=== PATIENT | male | born 1945 | race Caucasian/White ===

== ENCOUNTER 2024-07-03 20:11 | Emergency (ER) | payer MEDICARE, OTHER, SELFPAY ==
[2024-07-03 20:12] VITALS: BP 117/66
[2024-07-03 20:35] LABS: % Basophils 0.7 % (0-2); % Eosinophils 4.9 % (0-6); % Immature Granulocytes 1.3 % (0-0.5); % Lymphocytes 32.6 % (20.5-51.1); % Neutrophils 49.5 % (42.2-75.2); Absolute Eosinophils 0.3 10^3/uL (0-0.7); Absolute Immature Granulocytes 0.1 10^3/uL (0-0.05); Absolute Monocytes 0.7 10^3/uL (0.1-0.6); Hematocrit 40.9 % (39.0-52.0); Hemoglobin 13.4 g/dL (13.0-18.0); Mean Corp Hgb Conc. 32.8 g/dL (33.0-37.0); Mean Corpuscular Hgb 31.2 pg (27.0-31.0); Mean Corpuscular Volume 95.1 fL (80.0-94.0); Mean Platelet Volume 10.1 fL (7.4-10.4); Nucleated Red Blood Cells % 0 % (-); Platelet Count 166 10^3/uL (130-400); Red Cell Dist. Width 15.5 % (11.5-14.5); White Blood Cell Count 6.1 10^3/uL (4.8-10.8)
[2024-07-03 20:54] LABS: ALT (SGPT) 21 U/L (0-50); AST (SGOT) 34 U/L (17-59); Albumin 4.2 g/dl (3.5-5.0); Alkaline Phosphatase 76 U/L (38-126); Blood Urea Nitrogen 14 mg/dl (9-20); Carbon Dioxide 30 mmol/L (22-30); Chloride 103 mmol/L (98-107); Glucose 88 mg/dl (70-99); Potassium 5.3 mmol/L (3.5-5.1); Sodium 144 mmol/L (135-145); Total Bilirubin 0.3 mg/dl (0.2-1.3); Total Protein 7.7 g/dl (6.3-8.2); eGFR > 60.00
--- NOTE | 2024-07-03 21:37 | ED.GENMED ---
History of Present Illness
General
Chief Complaint: Male Genito-Urinary Symptoms
Source: patient and spouse
Exam Limitations: dementia
Time Seen by Provider: 07/03/24 21:27
History of Present Illness
History of Present Illness:
This is a 79 year old male that is brought in by his with c/o possible UTI. states that he has had a change in his behavior. Stats that this has happened in the past when he has a urinary tract infection. States that he gets more confused
and his anxiety goes up. State that as it advances he can't walk. States that she wanted to get him checked before this happened. Denies any fever, chills, chest pain, SOB, abd pain, nausea, vomiting, diarrhea, headache, dizziness, urinary burning.
Past History
Past History
ED Past Medical History: CAD, Cancer (Prostate CA), [place] and Other (Dmentia, )
ED Past Surgical History: Cardiac (Stents), Tonsilectomy, Urological (Prostatectomy) and Other (Skin graft)
Social History
Tobacco: Former smoker
Alcohol: None
Personal:
Living: care home ([facility])
Review of Systems
Review of Systems
Other source history: family ( and patient)
All Other Systems: ROS reviewed and negative except as documented in HPI and ROS
Constitutional: Reports no symptoms; Denies fever or chills
EENT: Reports no symptoms
Respiratory: Reports no symptoms; Denies cough or trouble breathing
Cardiac: Reports no symptoms; Denies chest pain
ABD/GI: Reports no symptoms; Denies abdominal pain, nausea, vomiting or diarrhea
: Reports no symptoms; Denies dysuria, frequency or urgency
Musculoskeletal: Reports no symptoms
Skin: Reports no symptoms
Neurological: Reports no symptoms; Denies dizzy or headache
Psychiatric: Reports no symptoms
Phy Exam
General Physical Exam
General Presentation: well appearing and no apparent distress
General age: appears stated age
General Skin: warm and dry
General Habitus: elderly
General Mental: usual mental status
General Hydration: appears well hydrated
ENT Exam
ENT Exam: TM's normal, pharynx normal and neck supple
Eye Exam
Eye Exam: EOMI
Cardiovascular Exam
Cardiovascular Exam: regular rate/rhythm, no murmur and normal peripheral pulses
Pulmonary Exam
Pulmonary Exam: lungs clear, no respiratory distress, no rales, chest non tender, no crackles, no rhonchi, no wheezing and no cough
Gastrointestinal Exam
Gastrointestinal Exam: normal bowel sounds, non tender, soft, no organomegaly, no pulsatile mass and non distended
Musculoskeletal Exam
Musculoskeletal Exam: full ROM and edema (Slight nonpitting lower leg edema)
Skin Exam
Skin Exam: normal color, warm/dry, no rash and no petechia
Psychiatric Exam
Psychiatric Exam: normal mood/affect
Course
Orders/Labs/Results
Orders:
Orders
07/03/24 20:27
Complete Blood Count/With Diff Urgent
Comprehensive Metabolic Panel Urgent
07/03/24 21:37
0.9% Sodium Chloride 1000 ml [Nss] 1,000 ml IV BOLUS
07/03/24 22:00
Urinalysis Reflex To Culture Urgent
Date Specimen was Collected: 07/03/24
Time Specimen was Collected: 21:38
Urine Microscopic Reflex Cult Urgent
Urine Culture Urgent
RHONDA Source: U
Specimen Description:
Date Specimen was Collected: 07/03/24
Time Specimen was Collected: 21:38
07/03/24 23:25
CefTRIAXone [Rocephin] 1,000 mg IV NOW STA
Abnormal Lab Results
07/03/24 07/03/24
20:27 22:00
RBC 4.30 L 10^6/uL
(4.70-6.10)
MCV 95.1 H fL
(80.0-94.0)
MCH 31.2 H pg
(27.0-31.0)
MCHC 32.8 L g/dL
(33.0-37.0)
RDW 15.5 H %
(11.5-14.5)
Abs Immat Gran (auto) 0.1 H 10^3/uL
(0-0.05)
Absolute Monos (auto) 0.7 H 10^3/uL
(0.1-0.6)
Immature Gran % 1.3 H %
(0-0.5)
Monocytes % 11.0 H %
(1.7-9.3)
Potassium 5.3 H mmol/L
(3.5-5.1)
Leukocyte Esterase Rfl Trace A
(Negative)
Urine WBC (Reflex) 30-40 A /HPF
(0-5)
Urine Bacteria (Reflex) Few A
(Negative)
07/03/24 20:27
07/03/24 20:27
Anemia, Hyperkalemia
Vital Signs
Initial and Last Documented VS:
Initial Vital Signs
Temp Pulse Resp BP Pulse Ox
98.5 F 82 18 117/66 99
07/03/24 20:12 07/03/24 20:12 07/03/24 20:12 07/03/24 20:12 07/03/24 20:12
Last Documented Vital Signs
Temp Pulse Resp BP Pulse Ox
98.5 F 82 18 117/66 99
07/03/24 20:12 07/03/24 20:12 07/03/24 20:12 07/03/24 20:12 07/03/24 20:12
MDM/Problems Addressed
Differential Diagnosis Includes:
UTI, change in mental status
MDM/Problems Addressed:
This is a79 year old male that is brought in by his with c/o possible UTI.
Will check labs and get urine. Will give IV fluids.
Back into see patient and . Explained that the patient does have a UTI. Will give IV Rocephin here and place on antibiotics for home. Patient to return with any concerns.
Chronic conditions affecting care:
Dementia
Acute Exacerbation and/or Progression of Chronic Illness:
Dementia
*Pulse Oximetry
Patient hypoxic: no
*EKG
Interpreted by ED Provider?: NA
Rate: EKG- N/A
*Technology Consultant Interpretation
Rate: Technology Consultant- N/A
*Critical Care Note
Total Time (30-74mins, 75-104mins- exclusive of procedures): Not Applicable
ED Attending Note
-
Portions of this chart may have been created with voice recognition software.� Occasional wrong word or��sound alike� substitutions may have occurred due to the inherent limitations of voice recognition software.
Discharge Plan
Departure
Patient Disposition: Home (Routine Discharge)
Date of Disposition: 07/03/24
Time of Disposition: 23:26
Patient with high blood pressure during this ER visit?: No
Condition: Good
Covid-19: Not Applicable
Discharge Problem:
Acute UTI (urinary tract infection)
Instructions: Urinary Tract Infection, Adult ED
Prescriptions:
New
cefdinir 300 mg capsule
300 mg PO BID Qty: 14 0RF
No Action
atorvastatin 40 MG tablet
40 mg PO QPM
sennosides 8.6 MG tablet
8.6 mg PO BID
polyethylene glycol 3350 17 GM powder in packet
17 gm PO DAILY AT 0700
atenolol 25 MG tablet
25 mg PO DAILY
clopidogrel [Plavix] 75 MG tablet
1 tab PO DAILY AT 0700
divalproex 125 MG tablet,delayed release (DR/EC)
3 tab PO Q12H
docusate sodium 100 MG capsule
100 mg PO BID
mirtazapine [Remeron] 15 MG tablet
15 mg PO DAILY
memantine 10 MG tablet
10 mg PO BID
psyllium husk [Konsyl Sugar-Free] 6 GM powder in packet
6 gm PO BID
Referrals:
Vy Christensen DO [Family Provider] - Follow up in 5-7 days
Activity Restrictions/Additional Instructions:
As discussed, your blood work shows some anemia. You do have a urinary tract infection. You have been given IV antibiotics here and a prescription will be sent back with you for the care home. Please increase your water intake to 8-8oz glasses
daily. Follow up with the family doctor for recheck. IF YOU HAVE ANY FEVER, INCREASED OR CHANGING MENTAL STATUS OR YOU HAVE ANY OTHER CONCERNS PLEASE RETURN TO THE EMERGENCY ROOM
Interventions
Interventions:
*General Assessment Last Done: 07/03/24 21:38
ED- Fall Risk Assessment Last Done: 07/03/24 21:38
ED-Male Genitourinary Assessment Last Done: 07/03/24 21:38
Discharge Date and Time
Print Language: GUINEAN
[2024-07-03] MEDS: NSS 1000 IV (22:01)
[2024-07-03 22:21] LABS: Urine Albumin Negative (Neg - Trace); Urine Bilirubin Negative (Negative); Urine Character Clear (Clear); Urine Color Yellow; Urine Glucose Negative (Negative); Urine Ketone Negative (Negative); Urine Leukocyte Trace (Negative); Urine Nitrite Negative (Negative); Urine Occult Blood Negative (Negative); Urine Urobilinogen Negative (Neg - 1+)
[2024-07-03 22:27] LABS: Urine Red Blood Cell 0-2 /HPF (0-2)
[2024-07-03 22:28] LABS: Urine Bacteria Few (Negative); Urine White Cell 30-40 /HPF (0-5)
[2024-07-03] MEDS: ROCEPHIN 1000 MG IV (23:32)
[2024-07-04 00:09] VITALS: BP 119/70
== END 2024-07-04 00:17 | disposition home or self-care (01) ==
LOC: EMR 20:11
PROVIDERS: Clinical Nurse Specialist Family Health; Emergency Medicine; EMERGENCY PHYSICIAN Emergency Medicine; FAMILY PHYSICIAN Family Medicine
DX: N39.0 Urinary tract infection, site not specified (principal); F03.94 Unspecified dementia, unspecified severity, with anxiety; I25.10 Atherosclerotic heart disease of native coronary artery without angina pectoris; Z95.5 Presence of coronary angioplasty implant and graft; Z85.46 Personal history of malignant neoplasm of prostate; Z87.891 Personal history of nicotine dependence; Z79.02 Long term (current) use of antithrombotics/antiplatelets; Z90.79 Acquired absence of other genital organ(s)
CPT/HCPCS: 99284; 96374; 96361; 80053; 81003; 81015; 85025; 87086

== ENCOUNTER 2024-09-20 14:24 | Emergency (ER) | payer MEDICARE, OTHER, SELFPAY ==
[2024-09-20 14:42] VITALS: BP 90/57
[2024-09-20 15:12] LABS: % Basophils 0.3 % (0-2); % Eosinophils 4.7 % (0-6); % Immature Granulocytes 1.3 % (0-0.5); % Lymphocytes 26.6 % (20.5-51.1); % Monocytes 9.7 % (1.7-9.3); % Neutrophils 57.4 % (42.2-75.2); Absolute Eosinophils 0.3 10^3/uL (0-0.7); Absolute Immature Granulocytes 0.1 10^3/uL (0-0.05); Absolute Lymphocytes 1.8 10^3/uL (1.2-3.4); Absolute Monocytes 0.7 10^3/uL (0.1-0.6); Absolute Neutrophils 3.9 10^3/uL (1.4-6.5); Hematocrit 42.3 % (39.0-52.0); Hemoglobin 13.7 g/dL (13.0-18.0); Mean Corp Hgb Conc. 32.4 g/dL (33.0-37.0); Mean Corpuscular Hgb 30.2 pg (27.0-31.0); Mean Corpuscular Volume 93.2 fL (80.0-94.0); Mean Platelet Volume 10.2 fL (7.4-10.4); Nucleated Red Blood Cells % 0 % (-); Platelet Count 195 10^3/uL (130-400); Red Blood Cell Count 4.54 10^6/uL (4.70-6.10); Red Cell Dist. Width 13.8 % (11.5-14.5); White Blood Cell Count 6.8 10^3/uL (4.8-10.8)
[2024-09-20 15:29] LABS: ALT (SGPT) 14 U/L (0-50); AST (SGOT) 50 U/L (17-59); Albumin 3.3 g/dl (3.5-5.0); Alkaline Phosphatase 99 U/L (38-126); Blood Urea Nitrogen 12 mg/dl (9-20); Calcium 8.7 mg/dl (8.4-10.2); Carbon Dioxide 31 mmol/L (22-30); Chloride 103 mmol/L (98-107); Glucose 103 mg/dl (70-99); Potassium 4.7 mmol/L (3.5-5.1); Sodium 139 mmol/L (135-145); Total Bilirubin 0.4 mg/dl (0.2-1.3); Total Protein 6.8 g/dl (6.3-8.2); eGFR > 60.00
--- NOTE | 2024-09-20 16:39 | ED.GENMED ---
History of Present Illness
General
Chief Complaint: Weakness
Time Seen by Provider: 09/20/24 16:26
History of Present Illness
History of Present Illness:
79-year-old male history of dementia, Parkinson's, CAD, hypertension, multiple lumbar compression fractures presenting with low back pain. Family at bedside states that patient was complaining of low back pain, was having difficulty sitting up
straight secondary to pain this afternoon prompting ED arrival. Patient denies any low back pain now. Patient denies numbness, weakness or tingling. Patient is incontinent at baseline. No fevers. Family deny any recent falls or trauma.
Past History
Past History
ED Past Medical History: CAD, Cancer (Prostate CA), [place] and Other (Dmentia, )
ED Past Surgical History: Cardiac (Stents), Tonsilectomy, Urological (Prostatectomy) and Other (Skin graft)
Social History
Tobacco: Former smoker
Alcohol: None
Personal:
Living: jail ([facility])
Phy Exam
Physical Exam
Physical Exam:
General: Alert, no acute distress
Head: NCAT
Eyes: clear conjunctiva
Neck: supple
Cardiac: regular rate and rhythm, no murmur
Lungs: clear to auscultation bilaterally. No wheezes, rales, or rhonchi. Speaking full unlabored sentences. No respiratory distress.
Abdomen: soft, nondistended nontender. No rebound or guarding. No CVA tenderness bilaterally
MSK: no lower extremity edema bilaterally. No deformity. No midline cervical/thoracic/lumbar tenderness to palpation. No paraspinal tenderness to palpation
Skin: warm, dry
Neuro: Alert and oriented x2, baseline. 5 out of 5 strength bilateral hip/knee/ankle flexion extension. Sensation intact throughout bilateral lower extremities
Course
Orders/Labs/Results
Orders:
Orders
09/20/24 14:56
CMP [Comprehensive Metabolic Panel] Urgent
Complete Blood Count/With Diff Urgent
Abnormal Lab Results
09/20/24
14:56
RBC 4.54 L 10^6/uL
(4.70-6.10)
MCHC 32.4 L g/dL
(33.0-37.0)
Abs Immat Gran (auto) 0.1 H 10^3/uL
(0-0.05)
Absolute Monos (auto) 0.7 H 10^3/uL
(0.1-0.6)
Immature Gran % 1.3 H %
(0-0.5)
Monocytes % 9.7 H %
(1.7-9.3)
Carbon Dioxide 31 H mmol/L
(22-30)
Glucose 103 H mg/dl
(70-99)
Albumin 3.3 L g/dl
(3.5-5.0)
09/20/24 14:56
09/20/24 14:56
Vital Signs
Initial and Last Documented VS:
Initial Vital Signs
Temp Pulse Resp BP Pulse Ox
98.0 F 74 18 90/57 98
09/20/24 14:42 09/20/24 14:42 09/20/24 14:42 09/20/24 14:42 09/20/24 14:42
Last Documented Vital Signs
Temp Pulse Resp BP Pulse Ox
98.0 F 65 14 108/69 98
09/20/24 14:42 09/20/24 16:48 09/20/24 16:48 09/20/24 16:48 09/20/24 16:48
MDM/Problems Addressed
MDM/Problems Addressed:
79-year-old male history of Parkinson's, dementia, CAD, hypertension, multiple lumbar compression fractures presenting with low back pain. No recent falls or trauma. Neurologically intact. No midline tenderness to palpation. Pt denies any pain
currently. Family states pt was recently evaluated at [facility], diagnosed with multiple old lumbar compression fractures. No new falls since imaging. Offered repeat imaging to rule out new compression fracture. Family declines, requesting discharge
home. Labs reviewed, unremarkable. Stable for discharge home with PCP follow-up. Will give lidocaine patch prescription
*Critical Care Note
Total Time (30-74mins, 75-104mins- exclusive of procedures): Not Applicable
ED Attending Note
-
Portions of this chart may have been created with voice recognition software.� Occasional wrong word or��sound alike� substitutions may have occurred due to the inherent limitations of voice recognition software.
Discharge Plan
Departure
Patient Disposition: Home (Routine Discharge)
Date of Disposition: 09/20/24
Time of Disposition: 16:43
Patient with high blood pressure during this ER visit?: No
Discharge Problem:
Low back pain
Prescriptions:
New
lidocaine 5 % adhesive patch,medicated
1 patch topical .every 12 hours Qty: 30 0RF
No Action
atorvastatin 40 MG tablet
40 mg PO QPM
sennosides 8.6 MG tablet
8.6 mg PO BID
polyethylene glycol 3350 17 GM powder in packet
17 gm PO DAILY AT 0700
atenolol 25 MG tablet
25 mg PO DAILY
clopidogrel [Plavix] 75 MG tablet
1 tab PO DAILY AT 0700
divalproex 125 MG tablet,delayed release (DR/EC)
3 tab PO Q12H
docusate sodium 100 MG capsule
100 mg PO BID
mirtazapine [Remeron] 15 MG tablet
15 mg PO DAILY
memantine 10 MG tablet
10 mg PO BID
psyllium husk [Konsyl Sugar-Free] 6 GM powder in packet
6 gm PO BID
cefdinir 300 mg capsule
300 mg PO BID Qty: 14 0RF
Activity Restrictions/Additional Instructions:
Take Tylenol 975mg every 6 hours as needed for pain
Use lidocaine patch, change every 12 hours
Follow up with primary care doctor in 1-2 days
Return to the emergency department for numbness, weakness, tingling or new/worsening symptoms
Interventions
Interventions:
*Risk Screen - Suicide Last Done: 09/20/24 16:47
*General Assessment Last Done: 09/20/24 16:47
*Neglect/Abuse Screening Last Done: 09/20/24 16:47
*ED COVID-19 Vaccine History Last Done: 09/20/24 16:47
*Nursing Disposition Last Done: 09/20/24 17:10
ED- Neurological Assessment Last Done: 09/20/24 16:49
ED- Pulmonary Assessment Last Done: 09/20/24 16:49
Discharge Date and Time
Discharge Date/Time: 09/20/24 17:10
Print Language: TURKISH
[2024-09-20 16:48] VITALS: BP 108/69
== END 2024-09-20 17:10 | disposition home or self-care (01) ==
LOC: EMR 14:24
PROVIDERS: Emergency Medicine; EMERGENCY PHYSICIAN Emergency Medicine; FAMILY PHYSICIAN Family Medicine
DX: M54.50 Low back pain, unspecified (principal); F02.80 Dementia in other diseases classified elsewhere, unspecified severity, without behavioral disturbance, psychotic disturbance, mood disturbance, and anxiety; G20.A1 Parkinson's disease without dyskinesia, without mention of fluctuations; I25.10 Atherosclerotic heart disease of native coronary artery without angina pectoris; I10 Essential (primary) hypertension; Z85.46 Personal history of malignant neoplasm of prostate; Z87.891 Personal history of nicotine dependence; Z90.79 Acquired absence of other genital organ(s); Z95.5 Presence of coronary angioplasty implant and graft
CPT/HCPCS: 99283; 80053; 85025